=== PATIENT | female | born 1965 | race Caucasian/White ===

== ENCOUNTER 2020-11-15 11:56 | Emergency (ER) | payer OTHER, SELFPAY ==
--- NOTE | ~2020-11-15 | XR_ITS ---
XR elbow LT min 3V 11/15/2020 13:55 INDICATION: Left elbow pain PROCEDURE: 4 views left elbow COMPARISON: No prior studies for comparison. FINDINGS: Fracture, dislocation or subluxation is not identified. No significant joint effusion. The soft tissues appear within normal limits. No foreign bodies are identified. IMPRESSION: 1: NO ACUTE BONE OR JOINT ABNORMALITY IDENTIFIED. Reviewed, dictated and finalized at location A.
--- NOTE | ~2020-11-15 | XR_ITS ---
XR wrist LT min 3V 11/15/2020 12:18 Indication: Left wrist pain Procedure: 4 views left wrist Comparison: No prior studies for comparison. Findings: There is a comminuted intra-articular fracture with subtle impaction involving the distal r adius. Moderate ventral soft tissue swelling. No other fracture or traumatic malalignment. No foreign bodies. Impression: 1: Comminuted intra-articular fracture distal aspect of the radius with subtle impaction Reviewed, dictated and finalized at location A. Impression: 1: Comminuted intra-articular fracture distal aspect of the radius with subtle impaction
[2020-11-15 12:00] VITALS: BP 194/100; PULSE 110; RESP 20; TEMP 36.1; O2SAT 97
--- NOTE | 2020-11-15 13:05 | ED.GENADULT ---
HPI - General Adult General Chief complaint: Extremity Injury, Upper Stated complaint: L WRIST PAIN Time Seen by Provider: 11/15/20 12:14 Source: patient Mode of arrival: ambulatory Limitations: no limitations History of Present Illness HPI narrative: Patient presents for evaluation of left wrist pain. She indicates she tripped while working in the garage just prior to arrival. She landed with her left arm outstretched. She did not hit her head or have loss of consciousness. She now reports left wrist pain, radiating into the left hand and up the left upper extremity. She states the pain is constant, throbbing, 8 out of 10 in severity. She has associated numbness and tingling and left hand. She is right-hand dominant. She has not taken anything for pain. No additional complaints or concerns. Related Data Allergies Allergy/AdvReac Type Severity Reaction Status Date / Time codeine Allergy Rash Verified 11/15/20 12:03 Penicillins Allergy Unknown Verified 11/15/20 12:03 Sulfa (Sulfonamide Allergy Unknown Verified 11/15/20 12:03 Antibiotics) Review of Systems Review of Systems: Narrative: CONSTITUTIONAL: Denies fever, chills, or sweats. EYES: Denies visual changes, redness, or discharge. ENT: Denies rhinorrhea, congestion, sore throat, or otalgia. CARDIOVASCULAR: Denies chest pain, palpitations, or edema. RESPIRATORY: Denies cough or dyspnea. GASTROINTESTINAL: Denies abdominal pain, nausea, vomiting, or diarrhea. GENITOURINARY: Denies dysuria or hematuria. SKIN: Denies rash or itching. MUSCULOSKELETAL: Reports pain in the left wrist with radiation to the left hand and up the left upper extremity. NEUROLOGIC: Reports numbness in the left hand. Denies headache, dizziness and weakness. PSYCHIATRIC: Denies anxiety or depression. FOR[facility]LY [facility] Past Medical History Medical History (Updated 11/15/20 @ 15:24 by Avery Cruz, LORENZO, WISAM) Depression Hypertension Surgical History Surgical History History of hysterectomy Family History Family History Mother Hypertension Father Hypertension Heart disease Social History Social History Alcohol intake: never Substance use: never Living arrangements: alone Gender identity (if verbalized by the patient): Female Spiritual care concerns: No Exam Narrative: Exam Narrative: GENERAL: Well-appearing, well-nourished, and in no acute distress. HEAD: Normocephalic, atraumatic. EYES: PERRLA and EOMI. ENT: Nares clear, no rhinorrhea or epistaxis. Mucous membranes moist. Oropharynx without tonsillar hypertrophy exudate or other lesions. Bilateral TMs pearly lehman nonbulging NECK: Supple. No adenopathy or masses. No carotid bruits or JVD CHEST: Clear to auscultation. No respiratory distress. No wheezes rales or rhonchi HEART: Regular rate and rhythm. No murmur heard. Normal peripheral pulses. ABDOMEN: Soft, nontender, nondistended, normal active bowel sounds. EXTREMITIES: Decreased range of motion of the left wrist. 3-5 hand jack setter strength on the left. 5 out of 5 hand jack setter strength on the right. There is a deformity and swelling noted to the left wrist. She is tender over the midshaft of left radius and ulna but is significantly more tender over the distal left radius and left ulna, radius greater than ulna. She has tenderness in the second third and fourth metacarpals of left hand SKIN: Warm, dry, no rash. NEURO: No focal deficits. Alert and oriented x3. PSYCH: Normal mood and affect. Course Course Emergency Course: 55-year-old female presented with complaints of left wrist pain radiating through the left hand and up the left upper extremity. Initial left wrist film showed closed comminuted impacted distal radius fracture. I discussed all relevant facts of case with orthopedics, Dr. Titus
[2020-11-15] MEDS: HYDROcodone/acetaminophen (*CRX) 5-325 MG TABLET 2 TAB PO (13:09)
[2020-11-15 15:30] VITALS: BP 132/84; PULSE 84; RESP 16; O2SAT 97
== END 2020-11-15 15:35 | disposition home or self-care (01) ==
PROVIDERS: Emergency Provider Nurse Practitioner; PCP Nurse Practitioner Family
DX: S52.572A Other intraarticular fracture of lower end of left radius, initial encounter for closed fracture (principal); I10 Essential (primary) hypertension; F32.9 Major depressive disorder, single episode, unspecified; W01.0XXA Fall on same level from slipping, tripping and stumbling without subsequent striking against object, initial encounter
CPT/HCPCS: 29125; 73080; 73110; 99284; A4565; A9270